=== PATIENT | female | born 1955 | race Caucasian/White ===

== ENCOUNTER → 2017-06-03 | Outpatient (CLI) | payer OTHER ==
--- NOTE | 2017-06-03 08:11 | US ---
EXAMINATION TYPE: US liver DATE OF EXAM: 06/03/2017 COMPARISON: NONE CLINICAL HISTORY: Z86.19 Infectious Disease. Hepatitis C EXAM MEASUREMENTS: Liver Length: 12.1 cm Gallbladder Wall: 0.2 cm CBD: 0.5 cm Right Kidney: 10.8 x 3.7 x 5.4 cm Pancreas: Obscured by bowel gas Liver: Heterogeneous. Cystic area visualized left lobe measuring 2.9 x 1.8 x 2.8 cm Gallbladder: wnl Evidence for sonographic Polanco's sign: No CBD: wnl Right Kidney: No hydronephrosis or masses seen IMPRESSION: 1. Simple Appearing left hepatic cyst measuring 2.9 cm. 2. liver is slightly heterogeneous in echo pattern which can be seen with fatty infiltration, hepatoc ellular disease or hepatitis. Correlate clinically.
[2017-06-03 08:34] LABS: Basophils % (A) 0 %; Eosinophils # (A) 0.1 k/uL (0-0.7); Eosinophils % (A) 1 %; HCT 43.5 % (34.0-46.0); HGB 14.4 gm/dL (11.4-16.0); Lymphocytes # (A) 1.5 k/uL (1.0-4.8); Lymphocytes % (A) 36 %; MCH 31.3 pg (25.0-35.0); MCHC 33.2 g/dL (31.0-37.0); MCV 94.3 fL (80.0-100.0); Mean Platelet Volume 7.6; Monocytes # (A) 0.4 k/uL (0-1.0); Monocytes % (A) 8 %; Neutrophils # (A) 2.2 k/uL (1.3-7.7); Neutrophils % (A) 51 %; Platelet Count 211 k/uL (150-450); RBC 4.61 m/uL (3.80-5.40); RDW 12.8 % (11.5-15.5); WBC 4.3 k/uL (3.8-10.6)
[2017-06-03 09:00] LABS: ALT 123 U/L (9-52); AST 101 U/L (14-36); Albumin 4.1 g/dL (3.5-5.0); Alkaline Phosphatase 86 U/L (38-126); Anion Gap 8 mmol/L; Blood Urea Nitrogen 15 mg/dL (7-17); Calcium 9.3 mg/dL (8.4-10.2); Carbon Dioxide 30 mmol/L (22-30); Chloride 102 mmol/L (98-107); Cholesterol 231 mg/dL (<200); Glucose 92 mg/dL (74-99); HDL Cholesterol 74 mg/dL (40-60); LDL Cholesterol,Calculated 142 mg/dL (0-99); Potassium 4.7 mmol/L (3.5-5.1); Sodium 140 mmol/L (137-145); Total Bilirubin 0.9 mg/dL (0.2-1.3); Triglycerides 77 mg/dL (<150)
--- NOTE | 2017-06-04 11:55 | MM ---
Reason for exam: screening (asymptomatic). Last mammogram was performed 2 years and 3 months ago. History: Patient is postmenopausal and is nulliparous. Family history of breast cancer in maternal aunt. Benign excisional biopsy of the right breast, 1976. Physical Findings: A clinical breast exam by your physician is recommended on an annual basis and results should be correlated with mammographic findings. MG Screening Mammo w CAD Bilateral CC and MLO view(s) were taken. Prior study comparison: February 22, 2015, mammogram, performed at [facility]. December 27, 2013, mammogram, performed at [facility]. The breast tissue is heterogeneously dense. This may lower the sensitivity of mammography. No suspicious abnormality. No significant changes when compared with prior studies. ASSESSMENT: Negative, BI-RAD 1 RECOMMENDATION: Routine screening mammogram of both breasts in 1 year.
[2017-06-05 16:28] LABS: HCV Quant Log 5.92 (<1.08)
== END | disposition home or self-care (01) ==
LOC: RADUSWWP 07:27
PROVIDERS: ATTEND Internal Medicine
DX: Z12.31 Encounter for screening mammogram for malignant neoplasm of breast (principal); E55.9 Vitamin D deficiency, unspecified; K76.89 Other specified diseases of liver; Z13.6 Encounter for screening for cardiovascular disorders; Z86.19 Personal history of other infectious and parasitic diseases
CPT/HCPCS: 36415; 76705; 77067; 80053; 80061; 82306; 85025; 87522